=== PATIENT | male | born 1955 | race Caucasian/White ===

== ENCOUNTER → 2021-05-09 | Outpatient (CLI) | payer MEDICARE, OTHER ==
--- NOTE | 2021-05-10 14:30 | RAD ---
EXAM: AP, lateral and lumbosacral spot views with bilateral oblique views of the lumbar spine DATE: 05/09/2021 3:34 PM INDICATION: Reason: low back pain / Spl. Instructions: / History: COMPARISON: No Prior FINDINGS: 5 nonrib-bearing lumbar-type vertebral bodies. Vertebral body heights are preserved. Mild L5-S1 disc height loss. Small anterior endplate osteophytes at multiple levels. Mild facet degenerative changes L4-5 and L5-S1. No spondylolisthesis. IMPRESSION: 1. Multilevel degenerative change as above 2. Negative acute fracture or subluxation. Electronically signed by: Butch De Santiago MD (05/10/2021 2:27 PM) SATISH
== END ==
LOC: DXRAD 15:29
PROVIDERS: ATTEND Internal Medicine
DX: M47.816 Spondylosis without myelopathy or radiculopathy, lumbar region (principal)
CPT/HCPCS: 72110